=== PATIENT | male | born 1975 | race Asian ===

== ENCOUNTER 2021-07-21 12:16 | Emergency (ER) | payer OTHER ==
[~2021-07-21] VITALS: Ht 182.9 cm; Wt 95.5 kg
[2021-07-21 12:24] VITALS: BP 125/80
[2021-07-21 14:23] LABS: COVID AG,FIA SOURCE NASAL SWAB
== END 2021-07-21 15:19 | disposition home or self-care (01) ==
LOC: EMS 12:16
DX: U07.1 COVID-19 (principal); I10 Essential (primary) hypertension
CPT/HCPCS: 71045; 87426; 99284; U0003